=== PATIENT | male | born 1965 | race Caucasian/White ===

== ENCOUNTER → 2019-08-04 | Outpatient (CLI) | payer BC, OTHER ==
--- NOTE | 2019-08-04 11:33 | RADIOLOGY REPORT (SQ) ---
EXAM DESCRIPTION: MRI LUMBAR SPINE COMBO COMPLETED DATE/TIME: 08/04/2019 8:01 am REASON FOR STUDY: RIGHT LEG PAIN (M79.604), LOW BACK PAIN (M54.5) M79.604 PAIN IN RIGHT LEG COMPARISON: None. TECHNIQUE: Sagittal and Axial imaging includes T1, T1 post gadolinium, T2, STIR and gradient echo se quences. Coronal T2/HASTE imaging. CONTRAST TYPE AND DOSE: 20 mL Dotarem. RENAL FUNCTION: Not indicated. ACR Type II contrast agent associated with few, if any, unconfounded cases of NSF LIMITATIONS: None. FINDINGS: VISUALIZED UPPER ABDOMEN: Limited evaluation. No acute or suspicious findings suggested. SEGMENTATION: No transitional anatomy. The lowest well-developed disc space is labeled L5-S1. ALIGNMENT: Anatomic. VERTEBRAE: Intact. No fractures. BONE MARROW: Normal. No marrow replacement or reactive changes. DISC SIGNAL: Normal. No significant abnormal signal or loss of height. POSTERIOR ELEMENTS: Generally intact. No pars defect evident. HARDWARE: None in the spine. CORD AND CONUS: Normal in size and signal intensity. Conus at the T12-L1 level. SOFT TISSUES: No aortic aneurysm seen. No bulky retroperitoneal adenopathy or mass. No paraspinal mas s or fluid. L1-L2: No significant spinal stenosis or exit foraminal stenosis. L2-L3: Mild concentric disc bulging with no central canal or foraminal stenosis. L3-L4: No significant spinal stenosis or exit foraminal stenosis. L4-L5: 6 mm right paracentral/foraminal disc protrusion displaces the traversing nerve roots. There is no entrapment of the exiting nerve. L5-S1: No significant spinal stenosis or exit foraminal stenosis. LOWER THORACIC: Incompletely imaged. No stenosis seen. SACRUM: Visualized upper sacrum intact. ENHANCEMENT: The disc protrusion enhances slightly. OTHER: No other significant findings. IMPRESSION: Right-sided disc protrusion at L4-5 displaces the traversing nerve roots. TECHNICAL DOCUMENTATION: JOB ID: [id number] [employer]- All Rights Reserved Reading location - IP/workstation name: [email or web address]
== END ==
LOC: RAD 06:28
PROVIDERS: ATTEND Orthopaedic Surgery
DX: M51.26 Other intervertebral disc displacement, lumbar region (principal); M79.604 Pain in right leg
CPT/HCPCS: 82565; 72158; A9576

== ENCOUNTER → 2019-08-20 | Outpatient (CLI) | payer OTHER ==
[2019-08-20 10:51] LABS: ABSOLUTE EOSINOPHILS # (AUTO) 0.2 10^3/uL (0.0-0.6); ABSOLUTE LYMPHOCYTES (AUTO) 1.3 10^3/uL (0.5-4.7); ABSOLUTE MONOCYTES (AUTO) 0.5 10^3/uL (0.1-1.4); ABSOLUTE NEUT (AUTO) 5.4 10^3/uL (1.7-8.2); BASOPHILS % (AUTO) 0.5 % (0-2); EOSINOPHILS % (AUTO) 2.2 % (0-6); HEMOGLOBIN 17.2 g/dL (13.5-17.0); LYMPHOCYTES % (AUTO) 17.6 % (13-45); MEAN CORPUSCULAR HEMOGLOBIN 32.3 pg (27.0-33.4); MEAN CORPUSCULAR HGB CONC 35.8 g/dL (32.0-36.0); MEAN CORPUSCULAR VOLUME 90 fl (80-97); MONOCYTES % (AUTO) 6.5 % (3-13); PLATELET COUNT 170 10^3/uL (150-450); RED BLOOD COUNT 5.33 10^6/uL (4.35-5.55); SEGMENTED NEUTROPHILS % (AUTO) 73.2 % (42-78); TOTAL CELLS COUNTED % (AUTO) 100 %; WHITE BLOOD COUNT 7.3 10^3/uL (4.0-10.5)
[2019-08-20 11:16] LABS: ANION GAP 10 (5-19); BLOOD UREA NITROGEN 18 mg/dL (7-20); CALCIUM 9.3 mg/dL (8.4-10.2); CARBON DIOXIDE 22 mmol/L (22-30); CHLORIDE 107 mmol/L (98-107); GLUCOSE 93 mg/dL (75-110); POTASSIUM 4.4 mmol/L (3.6-5.0)
--- NOTE | 2019-08-21 21:35 | EKG REPORT ---
SEVERITY:- NORMAL ECG - SINUS RHYTHM : Confirmed by: Luzmaria George 21-Aug-2019 21:34:37
== END ==
LOC: OD 09:30
PROVIDERS: ATTEND Orthopaedic Surgery
DX: Z01.818 Encounter for other preprocedural examination (principal)
CPT/HCPCS: 36415; 80048; 85025; 93005; 93010

== ENCOUNTER 2020-09-05 19:07 | Emergency (ER) | payer BC, OTHER ==
[2020-09-05 20:03] LABS: ABSOLUTE LYMPHOCYTES (AUTO) 0.8 10^3/uL (0.5-4.7); ABSOLUTE MONOCYTES (AUTO) 0.5 10^3/uL (0.1-1.4); BASOPHILS % (AUTO) 0.2 % (0-2); EOSINOPHILS % (AUTO) 0.4 % (0-6); HEMOGLOBIN 16.3 g/dL (13.5-17.0); LYMPHOCYTES % (AUTO) 14.5 % (13-45); MEAN CORPUSCULAR HEMOGLOBIN 30.7 pg (27.0-33.4); MEAN CORPUSCULAR HGB CONC 35.4 g/dL (32.0-36.0); MEAN CORPUSCULAR VOLUME 87 fl (80-97); MONOCYTES % (AUTO) 8.8 % (3-13); PLATELET COUNT 148 10^3/uL (150-450); SEGMENTED NEUTROPHILS % (AUTO) 76.1 % (42-78); TOTAL CELLS COUNTED % (AUTO) 100 %; WHITE BLOOD COUNT 5.2 10^3/uL (4.0-10.5)
[2020-09-05 20:23] LABS: ALBUMIN 4.1 g/dL (3.5-5.0); ALKALINE PHOSPHATASE 95 U/L (38-126); ANION GAP 12 (5-19); ASPARTATE AMINO TRANSFERASE 37 U/L (17-59); BILIRUBIN,DIRECT 0.1 mg/dL (0.0-0.4); BLOOD UREA NITROGEN 14 mg/dL (7-20); CALCIUM 8.7 mg/dL (8.4-10.2); CARBON DIOXIDE 20 mmol/L (22-30); CHLORIDE 101 mmol/L (98-107); GLUCOSE 122 mg/dL (75-110); POTASSIUM 3.8 mmol/L (3.6-5.0); TOTAL PROTEIN 7.2 g/dL (6.3-8.2)
--- NOTE | 2020-09-05 22:48 | RADIOLOGY REPORT (SQ) ---
EXAM DESCRIPTION: XR CHEST 1 VIEW COMPLETED DATE/TME: 09/05/2020 22:18 CLINICAL HISTORY: 55 years, Male, sob COMPARISON: None. NUMBER OF VIEWS: 1 TECHNIQUE: AP portable upright view of the chest was obtained at 10:11 PM. LIMITATIONS: None. FINDINGS: There is asymmetric increased opacity in the left suprahilar region which could be due to overlapping vascular shadows and anterior first rib, however given the asymmetric appearance, additional evaluation with chest CT is recommended to exclude mass. Lungs are otherwise clear. The heart size is normal. There is no evidence of pleural effusion or pneumothorax. IMPRESSION: Asymmetric opacity in the left suprahilar region as above. More definitive evaluation with chest CT is recommended to exclude underlying mass lesion. copyright 2010 [employer]- All Rights Reserved
[2020-09-05] MEDS ORDERED: NORMAL SALINE 1000 ML 1,000 ML IV ONE (22:55)
[2020-09-05] MEDS ORDERED: LIDOCAINE 2% VISCOUS SOLN 15 ML UDCUP PO ONE (23:44)
[2020-09-05] MEDS ORDERED: ONDANSETRON HCL INJ/PF 4 MG/2 ML SDV IV ONE (23:44)
[2020-09-05] MEDS ORDERED: MAG HYDROX/AL HYDROX/SIMETH SUSP 30 ML UDCUP PO ONE (23:44)
--- NOTE | 2020-09-06 00:10 | ER Document Report ---
ED General - General Chief Complaint: Shortness Of Breath Stated Complaint: SHORTNESS OF BREATH Time Seen by Provider: 09/05/20 22:43 TRAVEL OUTSIDE OF THE [place] IN LAST 30 DAYS: No - HPI Notes: Patient is a 55-year-old gentleman who presents to the emergency department for evaluation. He was exposed to a coworker with Covid 1 week ago. 6 days ago he was tested and found to be positive. He states he is had some significant fatigue. Occasionally he has tightness in his chest with deep breaths. He has had some body aches. Has had some mild anosmia. He had about 2 episodes of diarrhea over the weekend. He started having nonbloody, nonbilious emesis yesterday. He checked his pulse ox on oximeter at home, it was found to be 88%, so he presents here to the emergency department for further evaluation. He denies any shortness of breath. He denies any pain of any sort other than some heartburn, which he states he suffers from chronically, which seems to be worse with his nausea. - Related Data Allergies/Adverse Reactions: No Known Allergies Allergy (Verified 09/05/20 20:19) Home Medications: Omeprazole Past Medical History - General Information source: Patient - Social History Smoking Status: Former Smoker Family History: Reviewed & Not Pertinent GI Medical History: Reports: Hx Gastroesophageal Reflux Disease Past Surgical History: Reports: Hx Cholecystectomy, Hx Gastric Bypass Surgery Review of Systems - Review of Systems Constitutional: See HPI EENT: No symptoms reported Cardiovascular: No symptoms reported Respiratory: See HPI Gastrointestinal: See HPI Musculoskeletal: No symptoms reported Skin: No symptoms reported Neurological/Psychological: No symptoms reported -: Yes All other systems reviewed and negative Physical Exam - Vital signs Vitals: Temp Pulse Resp BP Pulse Ox 98.2 F 84 20 126/74 H 95 09/05/20 19:32 09/05/20 19:32 09/05/20 19:32 09/05/20 19:32 09/05/20 19:32 - Notes Notes: Vital signs reviewed, please refer to chart. Head is normocephalic, atraumatic. Pupils equal round, reactive to light. Neck is supple without meningismus. Heart is regular rate and rhythm. Lungs are clear to auscultation bilaterally. Abdomen is soft, nontender, normoactive bowel sounds throughout. Extremities without cyanosis, clubbing. Posterior calves are nontender. Peripheral pulses are equal. Skin is warm and dry. Patient is awake, alert, neurological exam is nonfocal. Course - Re-evaluation Re-evalutation: 09/06/20 00:09 Patient presents to the emergency department for evaluation. Laboratory investigations were ordered as per protocol. He was given IV fluids. He was treated for nausea as well as heartburn. His labs are largely unremarkable. His chest x-ray, however, shows an abnormality recommended to be further characterized with CT scan. This patient was notified of this finding and CT angiogram is ordered. Otherwise the patient has not been hypoxic in any way. His lungs are clear. He is currently stable, we will continue to monitor. 09/06/20 02:33 Patient has remained stable. His CT scan showed findings consistent with Covid pneumonia, as well as an enlarged lymph node. Recommended CT follow-up. I explained to the patient that this enlarged lymph node was likely reactive, but follow-up would be recommended, and he voiced understanding. Otherwise he was given Decadron here. He is to continue symptomatic treatment at home. I will send him with [facility]. He is to return to the ED with worsening or new concern ing symptoms of any sort. - Vital Signs Vital signs: Temp Pulse Resp BP Pulse Ox 98.5 F 84 13 127/77 H 94 09/05/20 20:05 09/05/20 19:32 09/06/20 01:01 09/06/20 01:01 09/06/20 01:01 - Laboratory Result Diagrams: 09/05/20 19:50 09/05/20 19:50 Laboratory results interpreted by me: 09/05/20 09/05/20 19:50 19:50 Plt Count 148 L Sodium 133.3 L Carbon Dioxide 20 L Glucose 122 H - Diagnostic Test Radiology reviewed: Image reviewed, Reports reviewed Radiology results interpreted by me: 09/06/20 00:09 Chest X-Ray 09/05/20 21:56 IMPRESSION: Asymmetric opacity in the left suprahilar region as above. More definitive evaluation with chest CT is recommended to exclude underlying mass lesion. copyright 2010 [employer]- All Rights Reserved Discharge - Discharge Clinical Impression: COVID-19 Condition: Stable Disposition: HOME, SELF-CARE Instructions: COVID-19 Guidance for Persons Under Investigation, Nausea or Vomiting, Nonspecific ([facility]) Additional Instructions: All of your findings today are consistent with COVID-19 infection, as already kn own. Your oxygenation was stable here. Your CT scan showed findings consistent with Covid, as well as an enlarged lymph node. This is likely reactive, meaning as a result of your infection, but this should be rechecked via another CT scan in 2 to 3 months. Please follow-up with your primary care provider in regards to this. Otherwise, Zofran as needed for nausea. Stay well-hydrated. Continue isolation at home. Return to the emergency department with worsening or new concerning symptoms of any sort.
--- NOTE | 2020-09-06 02:06 | RADIOLOGY REPORT (SQ) ---
CT ANGIOGRAM CHEST WITH IV CONTRAST: 09/06/2020 1:03 AM [employer] HISTORY: 55-year old patient with concern for mass on recent radiograph. TECHNIQUE: Postcontrast CT through the chest was performed per protocol for CT angiography. 3D Multiplanar reformations were performed at the workstation. Reconstructed sagittal and coronal images were also obtained through the chest. This exam was performed according to our departmental dose-optimization program, which includes automated exposure control, adjustment of the mA and/or KV according to the patient's size and/or use of iterative reconstruction technique. COMPARISON: Chest x-ray from 09/05/2020 FINDINGS: The heart size is within normal limits of size. No large pericardial effusion is seen. No significant supraclavicular, or axillary lymphadenopathy is seen. There are shotty mediastinal lymph nodes at the aortopulmonic window, pretracheal, paratracheal regions measuring up to 8 mm in short axis dimension. A right hilar lymph node measures up to 1.9 cm in short axis dimension. The thoracic aorta is within normal limits of size. No filling defects are seen within the pulmonary arteries to suggest a pulmonary artery embolism. The main pulmonary artery is within normal limits in size. No discrete masses seen at the left suprahilar region. The thyroid gland is unremarkable. The central tracheobronchial tree is patent. There are peripheral groundglass airspace opacities within the lungs. No discrete pleural effusion is seen. There is no evidence of a pneumothorax. The bones demonstrate no suspicious lytic or blastic lesion. The visualized hepatic parenchyma is diffusely low in attenuation. The spleen is enlarged and measures at least 18.2 cm in length. The gallbladder surgically absent. IMPRESSION: There are peripheral groundglass airspace opacities which can be seen with atypical viral infection. No filling defect is seen to suggest a pulmonary artery embolism. There is a prominent right hilar lymph node which could be reactive in nature. This can be followed within 2-3 months. There are findings of hepatic steatosis and moderate splenomegaly.
[2020-09-06] MEDS ORDERED: DEXAMETHASONE SOD PHOSPHATE INJ 4 MG/1 ML VIAL IV ONE (02:29)
[2020-09-06] MEDS ORDERED: ONDANSETRON ODT 4 MG TAB (6 TAB/ER DISP) PO PRN (02:34)
[2020-09-06 02:54] VITALS: BP 127/79
== END 2020-09-06 02:56 | disposition home or self-care (01) ==
LOC: ER 19:07
DX: U07.1 COVID-19 (principal); R06.02 Shortness of breath; R53.83 Other fatigue; M79.10 Myalgia, unspecified site; Z90.49 Acquired absence of other specified parts of digestive tract; Z98.84 Bariatric surgery status
CPT/HCPCS: 99285; 96361; 96374; 96375; 36415; 85025; 80053; 71045; 71275; J1100; J3490; J2405; J7030